=== PATIENT | female | born 1980 | race Caucasian/White ===

== ENCOUNTER 2019-07-09 05:15 | Emergency (ER) | payer OTHER, MEDICAID ==
[~2019-07-09] VITALS: Ht 165.1 cm; Wt 113.4 kg
[~2019-07-09 05:15] MED LIST: ACETAMINOPHEN-1 EAC1 PO; CLEOCIN HCL150 MG PO; HYDROCODON-ACE1 EAC7; HYDROCODON-ACE1 EAC7 PO; IBUPROFEN 800800 M1; IBUPROFEN 800800 M1 PO; LIDOCAINE VISC100 M1 SWISH&SPIT; PRENATAL
[2019-07-09 05:45] LABS: ABSOLUTE BASOPHILS 0.1 thou/uL (0.0-0.2); ABSOLUTE EOSINOPHILS 0.2 thou/uL (0.0-0.7); ABSOLUTE LYMPHOCYTES 1.6 thou/uL (0.8-5.3); ABSOLUTE MONOCYTES 0.4 thou/uL (0.0-1.2); ABSOLUTE NEUTROPHILS 4.9 thou/uL (1.6-8.1); BASOPHILS 1.5 %; EOSINOPHILS 2.1 %; LYMPHOCYTES 22.1 %; MCH 30.6 pg (26.0-34.0); MCHC 34.4 g/dL (28.0-37.0); MONOCYTES 6.1 %; MPV 7.8 fl. (7.2-11.1); NUCLEATED RBCS 0 /100WBC; PLATELET COUNT* 261 thou/uL (150-400); POLYS 68.2 %; RBC 3.94 mil/uL (4.20-5.00); RDW-CV 13.5 % (10.5-14.5); WBC 7.2 thou/uL (4.0-11.0)
[2019-07-09 06:04] LABS: CALCIUM 8.7 mg/dL (8.5-10.1); CREATININE 0.7 mg/dL (0.6-1.3); POTASSIUM 3.8 mmol/L (3.5-5.1)
[2019-07-09] MEDS ORDERED: NORCO 5-325 TA1 EAC1 PO (06:45)
[2019-07-09 07:08] VITALS: BP 144/86
--- NOTE | 2019-07-09 11:26 | EKG ---
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
== END 2019-07-09 07:11 | disposition home or self-care (01) ==
LOC: M.ERS 05:15
PROVIDERS: Emergency Medicine Emergency Medical Services
DX: S63.592A Other specified sprain of left wrist, initial encounter (principal); W00.0XXA Fall on same level due to ice and snow, initial encounter; Y93.89 Activity, other specified; Y92.89 Other specified places as the place of occurrence of the external cause; Y99.8 Other external cause status